=== PATIENT | male | born 1950 | race Caucasian/White ===

== ENCOUNTER → 2016-10-03 | Outpatient (CLI) | payer OTHER ==
[~2016-10-03] MED LIST: LISI-167 PO; ONDA4TAB13 SL; OXYC1TAB9 PO; TAMS0.4C2 PO
== END | disposition home or self-care (01) ==
LOC: CFH 15:57
PROVIDERS: ATTEND Urology
DX: N20.0 Calculus of kidney (principal); R91.1 Solitary pulmonary nodule
CPT/HCPCS: 74176